=== PATIENT | female | born 1955 | race Caucasian/White ===

== ENCOUNTER → 2017-03-28 | Outpatient (CLI) | payer MEDICAID, SELFPAY ==
[~2017-03-28] MED LIST: MOTRIN-DPS800 MG PO; PERCOCET 5-3251 EACH PO; PRILOSEC DPS20 MG PO; ZOFRAN4 MG PO
== END | disposition home or self-care (01) ==
LOC: RAD.S 03-22 14:30
DX: I83.812 Varicose veins of left lower extremity with pain (principal)